=== PATIENT | female | born 1965 | race African-American/Black ===

== ENCOUNTER 2017-08-02 20:23 | Emergency (ER) | payer OTHER ==
[2017-08-02 20:56] VITALS: BP 141/77; PULSE 86; TEMP 97.6; BMI 27.3
--- NOTE | 2017-08-02 23:11 | PDOC ---
History of Present Illness - General History Source: Patient, Family Exam Limitations: No Limitations - History of Present Illness Initial Comments: 08/03/17 00:13 The patient is a 52 year old female, with a significant past medical history of HTN, hyperlipidemia, and gastroenteritis, who presents to the emergency department, s/p mechanical fall. She reports going out to drink with her sister and [id number] then she fell in front of a building on her face. She reports pain on her left upper lip and forehead. She denies neither eating nor taking her medication today. She denies loss of consciousness. She denies recent fevers, chills, headache or dizziness. She denies recent nausea, vomit, diarrhea or constipation. She denies recent dysuria, frequency, urgency or hematuria. She denies recent chest pain or shortness of breath. Allergies: NKA Past surgical history: None reported. Social history: Smoker. Alcoholic (As per daughter). Denies recreational drug use. Primary Care Physician: Dr. Phillip Harman <Barbara Lan - Last Filed: 08/03/17 04:38> <Yessenia Shafer - Last Filed: 08/03/17 19:47> - General Chief Complaint: Injury Stated Complaint: FALL Time Seen by Provider: 08/02/17 23:01 Past History <Barbara Lan - Last Filed: 08/03/17 04:38> - Suicide/Smoking/Psychosocial Hx Smoking Status: Yes Smoking History: Never smoked Have you smoked in the past 12 months: No Number of Cigarettes Smoked Daily: 2 Information on smoking cessation initiated: No 'Breaking Loose' booklet given: 01/02/15 Hx Alcohol Use: No Drug/Substance Use Hx: No <Yessenia Shafer - Last Filed: 08/03/17 19:47> - Past Medical History Allergies/Adverse Reactions: Allergies Allergy/AdvReac Type Severity Reaction Status Date / Time No Known Allergies Allergy Verified 08/02/17 20:56 Home Medications: Ambulatory Orders Ranitidine [Zantac -] 150 mg PO DAILY #10 tablet 01/02/15 Sucralfate [Carafate] 1 gm PO BID #20 tablet 01/02/15 Review of Systems - Review of Systems Able to Perform ROS?: Yes Comments:: 08/03/17 00:14 GENERAL/CONSTITUTIONAL: No fever or chills. No weakness. HEAD, EYES, EARS, NOSE AND THROAT: No change in vision. No ear pain or discharge. No sore throat. FACE: +Left upper lip pain. +Left forehead pain. CARDIOVASCULAR: No chest pain or shortness of breath. RESPIRATORY: No cough, wheezing, or hemoptysis. GASTROINTESTINAL: No nausea, vomiting, diarrhea or constipation. GENITOURINARY: No dysuria, frequency, or change in urination. MUSCULOSKELETAL: No joint or muscle swelling or pain. No neck or back pain. SKIN: No rash NEUROLOGIC: No headache, vertigo, loss of consciousness, or change in strength/ sensation. ENDOCRINE: No increased thirst. No abnormal weight change. HEMATOLOGIC/LYMPHATIC: No anemia, easy bleeding, or history of blood clots. ALLERGIC/IMMUNOLOGIC: No hives or skin allergy. <Barbara Lan - Last Filed: 08/03/17 04:38> *Physical Exam - Vital Signs Last Vital Signs Temp Pulse Resp BP Pulse Ox 97.6 F 86 19 141/77 100 08/02/17 20:49 08/02/17 20:49 08/02/17 20:49 08/02/17 20:49 08/02/17 20:49 - Physical Exam Comments: 08/03/17 04:38 GENERAL: Awake, alert, and fully oriented, in no acute distress HEAD: +Left forehead pain. +Left upper lip pain. EYES: PERRLA, EOMI, sclera anicteric, conjunctiva clear ENT: Auricles normal inspection, hearing grossly normal, nares patent, oropharynx clear without exudates. Moist mucosa NECK: Normal ROM, supple, no lymphadenopathy, JVD, or masses LUNGS: Breath sounds equal, clear to auscultation bilaterally. No wheezes, and no crackles HEART: Regular rate and rhythm, normal S1 and S2, no murmurs, rubs or gallops ABDOMEN: Soft, nontender, normoactive bowel sounds. No guarding, no rebound. No masses EXTREMITIES: Normal range of motion, no edema. No clubbing or cyanosis. No cords, erythema, or tenderness NEUROLOGICAL: Cranial nerves II through XII grossly intact. Normal speech, normal gait SKIN: Warm, Dry, normal turgor, no rashes or lesions noted. <Barbara Lan - Last Filed: 08/03/17 04:38> - Vital Signs Last Vital Signs Temp Pulse Resp BP Pulse Ox 97.6 F 86 19 141/77 100 08/02/17 20:49 08/02/17 20:49 08/02/17 20:49 08/02/17 20:49 08/02/17 20:49 <Yessenia Shafer - Last Filed: 08/03/17 19:47> Medical Decision Making - Medical Decision Making 08/03/17 00:57 EXAM: CT MAXILLOFACIAL without contrast HISTORY: Trauma COMPARISON: None. FINDINGS: Nasal Bones: no fracture Orbits and globes: normal Zygomatic areches: Normal with no fracture Mandaible:Normal with no fracture Soft tissues: Normal IMPRESSION: No facial fracture Read by: Toi Collins MD <Barbara Lan - Last Filed: 08/03/17 04:38> - Medical Decision Making 08/03/17 19:46 Pt fell while drunk,. Known alcoholic. 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 She is accompanied by her adult children. Imaging normal. Pt's exam was normal. She is refusing detox; she will be discharged home. <Yessenia Shafer - Last Filed: 08/03/17 19:47> *DC/Admit/Observation/Transfer - Attestations Scribe Attestion: 08/03/17 00:14 Documentation prepared by Barbara Lan, acting as medical concierge for Yessenia Shafer MD. <Barbara Lan - Last Filed: 08/03/17 04:38> - Discharge Dispostion Admit: No <Yessenia Shafer - Last Filed: 08/03/17 19:47> Diagnosis at time of Disposition: Intoxication, Head injury, acute - Discharge Dispostion Disposition: HOME Condition at time of disposition: Stable - Referrals Referrals: Phillip Harman MD [Primary Care Provider] - - Patient Instructions Printed Discharge Instructions: DI for Closed Head Injury - Post Discharge Activity
== END 2017-08-03 00:57 | disposition home or self-care (01) ==
LOC: JER 20:23
DX: S09.8XXA Other specified injuries of head, initial encounter (principal); F10.10 Alcohol abuse, uncomplicated; W18.39XA Other fall on same level, initial encounter; Y93.89 Activity, other specified; Y92.89 Other specified places as the place of occurrence of the external cause; Y99.8 Other external cause status
CPT/HCPCS: 70450-TC; 70486-TC; 99281-25

== ENCOUNTER 2021-01-07 18:06 | Emergency (ER) | payer OTHER ==
[2021-01-07 18:12] VITALS: BP 147/86; PULSE 102; TEMP 98; BMI 23.1
[2021-01-07] MEDS ORDERED: IBUPROFEN 600 MG TABLET (FP) PO ONE ×2 (18:38→18:39)
== END 2021-01-07 18:49 | disposition home or self-care (01) ==
LOC: JERFT 18:06
PROC: 0HQ0XZZ Repair Scalp Skin, External Approach (ICD-10-PCS; principal; 2021-01-07)
DX: S01.01XA Laceration without foreign body of scalp, initial encounter (principal)
CPT/HCPCS: 99283-25

== ENCOUNTER 2021-01-16 10:13 | Emergency (ER) | payer OTHER ==
[2021-01-16 10:20] VITALS: BP 165/96; PULSE 98; TEMP 98.5; BMI 23.1
== END 2021-01-16 10:49 | disposition home or self-care (01) ==
LOC: JERFT 10:13
DX: Z48.02 Encounter for removal of sutures (principal)
CPT/HCPCS: 99281-25

== ENCOUNTER 2021-12-10 11:48 | Observation (INO) | payer OTHER ==
[2021-12-10 14:20] LABS: BASO % 1.1 % (0-2.0); EOS % 1.5 % (0-4.5); HEMATOCRIT 33.9 % (32.4-45.2); HEMOGLOBIN 11.8 GM/dL (10.7-15.3); LYMPH % 43.9 % (8-40); MCH 32.5 pg (25.7-33.7); MCHC 34.9 g/dl (32.0-36.0); MEAN CELL VOLUME 93.1 fl (80-96); MEAN PLT VOLUME 7.2 fl (7.5-11.1); NEUT % 46.5 % (42.8-82.8); PLATELET COUNT 326 10^3/uL (134-434); RBC 3.64 M/mm3 (3.60-5.2); RDW 12.2 % (11.6-15.6); WHITE BLOOD COUNT 6.8 K/mm3 (4.0-10.0)
[2021-12-10 14:21] LABS: URINE APPEARANCE CLEAR; URINE BILIRUBIN NEGATIVE (NEGATIVE); URINE COLOR YELLOW; URINE GLUCOSE (UA) NEGATIVE (NEGATIVE); URINE KETONE NEGATIVE (NEGATIVE); URINE LEUK ESTERASE NEGATIVE (NEGATIVE); URINE NITRITE NEGATIVE (NEGATIVE); URINE PROTEIN NEGATIVE (NEGATIVE); URINE UROBILINOGEN 0.2 mg/dL (0.2-1.0)
[2021-12-10 14:45] LABS: CALCIUM 9.5 mg/dL (8.5-10.1)
[2021-12-10 14:46] LABS: ALBUMIN 3.6 g/dl (3.4-5.0); BLOOD UREA NITROGEN 14.6 mg/dL (7-18)
[2021-12-10 14:49] LABS: CREATININE 0.5 mg/dL (0.55-1.3)
[2021-12-10 14:51] LABS: BILIRUBIN,TOTAL 0.6 mg/dL (0.2-1); TOT PROT 7.4 g/dl (6.4-8.2)
[2021-12-10] MEDS ORDERED: SODIUM CHLORIDE 1,000 ML IV STA (20:26)
[2021-12-10] MEDS ORDERED: THIAMINE HCL 200 MG/2 ML VIAL IVPB ONE (20:29)
[2021-12-10] MEDS ORDERED: ASPIRIN COATED 81 MG TABLET.EC ONE ×2 (20:38→20:44)
[2021-12-10] MEDS ORDERED: THIAMINE HCL 200 MG/2 ML VIAL ONE (20:38)
[2021-12-10] MEDS ORDERED: FOLIC ACID 1 MG TABLET (FP) ONE ×2 (20:38→20:44)
[2021-12-10] MEDS ORDERED: NICOTINE 14 MG/24 HOURS TOPICAL PATCH TD ONE (20:38)
[2021-12-10] MEDS: FOLIC ACID 1 MG TABLET (FP) PO SCH (20:47)
[2021-12-10] MEDS: ASPIRIN COATED 81 MG TABLET.EC PO SCH (20:47)
[2021-12-10] MEDS: NICOTINE 14 MG/24 HOURS TOPICAL PATCH TD SCH (20:47)
[2021-12-10 23:51] VITALS: BMI 22.0
[2021-12-11 08:43] LABS: BASO % 0.4 % (0-2.0); EOS % 1.7 % (0-4.5); HEMOGLOBIN 10.8 GM/dL (10.7-15.3); LYMPH % 35.2 % (8-40); MCH 31.8 pg (25.7-33.7); MCHC 33.8 g/dl (32.0-36.0); MEAN PLT VOLUME 8.1 fl (7.5-11.1); MONO % 8.8 % (3.8-10.2); NEUT % 53.9 % (42.8-82.8); PLATELET COUNT 307 10^3/uL (134-434); RDW 12.2 % (11.6-15.6); WHITE BLOOD COUNT 6.6 K/mm3 (4.0-10.0)
[2021-12-11 09:17] LABS: TOT PROT 6.8 g/dl (6.4-8.2)
[2021-12-11 09:19] LABS: CALCIUM 9.7 mg/dL (8.5-10.1)
[2021-12-11 09:20] LABS: BLOOD UREA NITROGEN 12.7 mg/dL (7-18); CREATININE 0.6 mg/dL (0.55-1.3)
[2021-12-11 09:21] LABS: ALBUMIN 3.4 g/dl (3.4-5.0)
[2021-12-11 09:24] LABS: BILIRUBIN,TOTAL 0.5 mg/dL (0.2-1); PHOSPHOROUS 3.7 mg/dL (2.5-4.9)
[2021-12-11 09:54] VITALS: BP 127/80
[2021-12-11] MEDS ORDERED: ENOXAPARIN NA (PORCINE) 40 MG/0.4 ML DISP.SYRIN SQ SCH (10:00)
[2021-12-11] MEDS ORDERED: THIAMINE HCL 100 MG TABLET (FP) PO SCH (10:00)
[2021-12-11] MEDS ORDERED: MULTIVITAMINS (DAILY MVI) TABLET (FP) PO SCH (10:00)
[2021-12-11] MEDS: NICOTINE 14 MG/24 HOURS TOPICAL PATCH TD SCH (10:34)
[2021-12-11] MEDS: FOLIC ACID 1 MG TABLET (FP) PO SCH (10:34)
[2021-12-11] MEDS: ASPIRIN COATED 81 MG TABLET.EC PO SCH (10:35)
[2021-12-11 14:21] VITALS: PULSE 91; TEMP 97.6
[2021-12-11] MEDS ORDERED: ATORVASTATIN CA 20 MG TABLET (FP) PO SCH (22:00)
[2021-12-12] MEDS ORDERED: GABAPENTIN 100 MG CAPSULE PO SCH (10:00)
== END 2021-12-11 19:00 | disposition home or self-care (01) ==
LOC: JER 11:48 → JERBED 17:51 → J4W 23:16
PROVIDERS: ADMIT Internal Medicine; ATTEND Internal Medicine
PROC: 3E033GC Introduction of Other Therapeutic Substance into Peripheral Vein, Percutaneous Approach (ICD-10-PCS; principal; 2021-12-10)
PROC: 3E0337Z Introduction of Electrolytic and Water Balance Substance into Peripheral Vein, Percutaneous Approach (ICD-10-PCS; 2021-12-10)
DX: E86.0 Dehydration (principal); R42 Dizziness and giddiness; F10.10 Alcohol abuse, uncomplicated; R53.83 Other fatigue; I10 Essential (primary) hypertension; R29.810 Facial weakness; R63.4 Abnormal weight loss; E78.5 Hyperlipidemia, unspecified; R51.9 Headache, unspecified; F17.210 Nicotine dependence, cigarettes, uncomplicated; R20.0 Anesthesia of skin
CPT/HCPCS: 0241U-QW; 36415; 70450-TC; 70551-TC; 71046-TC-FY; 80053; 80061; 80307; 81003; 83036; 83735; 84100; 84443; 84484; 85025; 85610; 85730; 86850; 86900; 86901; 87086; 87186; 93005; 93010; 96361; 96374; 99285-25; G0378